=== PATIENT | female | born 1990 | race Caucasian/White ===

== ENCOUNTER 2019-09-29 10:47 | Emergency (ER) | payer BC, OTHER ==
[~2019-09-29] VITALS: Ht 152.4 cm; Wt 52.2 kg
[2019-09-29] MEDS ORDERED: HYDROCODONE/APAP 5MG-325MG TAB PO ONE (11:15)
== END 2019-09-29 11:34 | disposition home or self-care (01) ==
LOC: FSED 10:47
DX: M79.672 Pain in left foot (principal); S90.862A Insect bite (nonvenomous), left foot, initial encounter
CPT/HCPCS: 99283